=== PATIENT | female | born 1985 | race Caucasian/White ===

== ENCOUNTER 2017-09-29 16:21 | Emergency (ER) | payer SELFPAY ==
[2017-09-29] MEDS ORDERED: Sodium Chloride For Inhalation 0.9% 3 ML NEB ONE ×2 (17:06→18:16)
[2017-09-29] MEDS ORDERED: methylPREDNISolone Sod Succ/PF 125 MG/2 ML VIAL ONE (17:41)
[2017-09-29] MEDS ORDERED: Magnesium Sulfate 2 GM/NS 0.9% 50 ML BAG ONE (17:42)
[2017-09-29] MEDS ORDERED: Albuterol Sulfate 2.5 mg/0.5 ml Neb ONE ×3 (17:57→18:13)
[2017-09-29 17:59] LABS: Eosinophils 5 % (0-10); Hemoglobin 14.1 g/dL (12.0-16.0); Lymphocytes 22 % (21-51); MDiff Complete? YES; Mean Corpuscular HGB CONC 34.1 g/dL (32.0-36.0); Mean Corpuscular Hemoglobin 30.8 pg (27.0-31.0); Mean Corpuscular Volume 90.2 fl (81.0-99.0); Mean Platelet Volume 7.2 fL (7.4-10.4); Monocytes 13 % (0-10); Neutrophil 51 % (42-75); PLT Morphology Comment Appears Adequate; Platelet Count 362 thou/uL (130-400); RBC Distribution Width 12.3 % (11.5-14.5); Reactive Lymphocytes 9 % (0-10); Red Blood Cell (RBC) Count 4.58 mill/uL (4.20-5.40); White Blood Cell (WBC) Count 12.9 thou/uL (4.8-10.8)
[2017-09-29 18:02] LABS: Anion Gap 17 mmol/L (10-20); BUN (Urea Nitrogen) 10 mg/dL (7.0-18.7); Calc. Creatinine Clearance 0 mL/min (70-130); Calcium 9.6 mg/dL (7.8-10.44); Carbon Dioxide 21 mmol/L (22-29); Chloride 105 mmol/L (98-107); Estimated GFR-MDRD 90; Glucose 84 mg/dL (70-105); Potassium 4.7 mmol/L (3.5-5.1); Sodium 138 mmol/L (136-145)
--- NOTE | 2017-09-29 18:35 | RAD ---
CHEST ONE VIEW: History: Dyspnea. Comparison: 10-15-16 FINDINGS: The lungs are clear. No pneumothorax or effusion. Cardiac silhouette and mediastinal contours are wit hin normal limits. IMPRESSION: No acute intrathoracic abnormality. POS: [facility]
== END 2017-09-29 19:09 | disposition home or self-care (01) ==
LOC: SCSER 16:21
DX: J98.01 Acute bronchospasm (principal); M06.9 Rheumatoid arthritis, unspecified; G43.909 Migraine, unspecified, not intractable, without status migrainosus; F17.210 Nicotine dependence, cigarettes, uncomplicated; Z79.899 Other long term (current) drug therapy
CPT/HCPCS: 71045; 80048; 85025; 94640; 96365; 96375; J2930; J3475; J7611; J7620

== ENCOUNTER 2018-03-04 19:51 | Emergency (ER) | payer SELFPAY ==
[2018-03-04] MEDS ORDERED: Acetaminophen 500 MG TAB ONE (20:09)
[2018-03-04 20:33] LABS: #Eosinphils 0.5 thou/uL (0.0-0.7); #Lymphocytes 2.2 thou/uL (1.20-3.40); #Monocytes 1.3 thou/uL (0.11-0.59); #Neutrophils 9.8 thou/uL (1.40-6.50); %Basophils 0.3 % (0.0-1.0); %Eosinophils 3.7 % (0.0-10.0); %Lymphocytes 15.7 % (21.0-51.0); %Monocytes 9.5 % (0.0-10.0); %Neutrophils 70.7 % (42.0-75.0); BHCG - Serum Negative (NEGATIVE); Hemoglobin 14.2 g/dL (12.0-16.0); Mean Corpuscular HGB CONC 31.7 g/dL (32.0-36.0); Mean Corpuscular Hemoglobin 28.9 pg (27.0-31.0); Mean Corpuscular Volume 91.1 fL (78.0-98.0); Mean Platelet Volume 7.1 fL (7.4-10.4); Platelet Count 394 thou/uL (130-400); Pregs Control Background? CLEAR/WHITE (CLR/WHITE); Pregs Control Bar Appear? YES (CONTROL BAR); RBC Distribution Width 13.2 % (11.5-14.5); Red Blood Cell (RBC) Count 4.93 mill/uL (4.20-5.40); White Blood Cell (WBC) Count 13.8 thou/uL (4.8-10.8)
[2018-03-04 20:41] LABS: Bilirubin Negative (Negative); Blood, Urine Small (Negative); Clarity CLEAR (Clear); Glucose, Urine (Dipstick) Negative (Negative); Leukocyte Negative (Negative); Nitrite Negative (Negative); Protein, Urine (Dipstick) Negative (Neg-Trace); Specific Gravity, Urine 1.024 (1.002-1.036); Urobilinogen 0.2 mg/dL (0.2-1.0)
[2018-03-04 20:44] LABS: Bacteria/HPF 1+ HPF (None Seen); Hyaline Casts/LPF 0-3 HYALINE CAST LPF (0-3 Hyaline); Pathc Cast-AUWi Flag 1.01 (0-2.49)
[2018-03-04 20:48] LABS: ALT (SGPT) 39 U/L (8-55); AST (SGOT) 44 U/L (5-34); Alkaline Phosphatase 104 U/L (40-150); Anion Gap 14 mmol/L (10-20); BUN (Urea Nitrogen) 10 mg/dL (7.0-18.7); Bilirubin, Total 0.5 mg/dL (0.2-1.2); Calc. Creatinine Clearance 0 mL/min (70-130); Carbon Dioxide 22 mmol/L (22-29); Chloride 101 mmol/L (98-107); Estimated GFR-MDRD 88; Globulin 4.1 g/dL (2.4-3.5); Glucose 99 mg/dL (70-105); Potassium 3.9 mmol/L (3.5-5.1); Protein, Total 8.1 g/dL (6.0-8.3); Sodium 133 mmol/L (136-145)
--- NOTE | 2018-03-04 21:40 | RAD ---
AP VIEW CHEST: 03/04/18 HISTORY: Cough. AP view chest demonstrates no evidence of acute intrathoracic abnormality seen. No evidence of effusi ons, pneumonia or pneumothorax seen. Mild pulmonary vascular congestion seen. IMPRESSION: Mild pulmonary vascular congestion. Otherwise unremarkable AP view chest. POS: [facility]
== END 2018-03-04 23:18 | disposition home or self-care (01) ==
LOC: ERS 19:51
DX: L03.311 Cellulitis of abdominal wall (principal); J45.909 Unspecified asthma, uncomplicated; F17.290 Nicotine dependence, other tobacco product, uncomplicated
CPT/HCPCS: 36415; 71045; 80053; 81003; 81015; 83605; 84703; 85025; 87040; 96361; 96365; 96366; 96368; J1956; J3370

== ENCOUNTER 2020-03-18 14:21 | Emergency (ER) | payer OTHER, SELFPAY ==
[~2020-03-18 14:21] MED LIST: Iopamidol 370 76% 100 ML VIAL ONE
[2020-03-18] MEDS ORDERED: Clindamycin/D5W 900 mg/50 ml Premix Bag ONE (15:20)
[2020-03-18 16:12] LABS: ALT (SGPT) 10 U/L (8-55); AST (SGOT) 18 U/L (5-34); Albumin 3.6 g/dL (3.5-5.0); Alkaline Phosphatase 88 U/L (40-110); Anion Gap 13 mmol/L (10-20); BUN (Urea Nitrogen) 12 mg/dL (7.0-18.7); Bilirubin, Total 0.2 mg/dL (0.2-1.2); Calc. Creatinine Clearance 0 mL/min (70-130); Carbon Dioxide 23 mmol/L (22-29); Chloride 107 mmol/L (98-107); Estimated GFR-MDRD Greater than 90; Globulin 3.8 g/dL (2.4-3.5); Glucose 87 mg/dL (70-105); Potassium 5.2 mmol/L (3.5-5.1); Protein, Total 7.4 g/dL (6.0-8.3); Sodium 138 mmol/L (136-145)
[2020-03-18 16:18] LABS: #Basophils 0.1 thou/uL (0.0-0.2); #Eosinphils 0.2 thou/uL (0.0-0.7); #Monocytes 1.5 thou/uL (0.11-0.59); #Neutrophils 8.2 thou/uL (1.40-6.50); %Basophils 0.6 % (0.0-1.0); %Eosinophils 1.2 % (0.0-10.0); %Lymphocytes 23.1 % (21.0-51.0); %Monocytes 11.9 % (0.0-10.0); %Neutrophils 63.3 % (42.0-75.0); Hemoglobin 11.3 g/dL (12.0-16.0); Mean Corpuscular Hemoglobin 26.9 pg (27.0-31.0); Mean Corpuscular Volume 84.3 fL (78.0-98.0); Platelet Count 398 thou/uL (130-400); RBC Distribution Width 13.6 % (11.5-14.5); Red Blood Cell (RBC) Count 4.21 mill/uL (4.20-5.40); White Blood Cell (WBC) Count 12.9 thou/uL (4.8-10.8)
[2020-03-18 16:52] LABS: Pregnancy Test - Urine (BHCG) Negative (Negative); Pregu Control Background? CLEAR/WHITE (CLR/WHITE); Pregu Control Bar Appear? YES (CONTROL BAR); Specific Gravity 1.018 (1.002-1.036)
--- NOTE | 2020-03-18 17:21 | CT ---
CT FACIAL BONES WITH IV CONTRAST: 03/18/20 PROVIDED CLINICAL HISTORY: Right eye swelling. FINDINGS: There is reticulation of the subcutaneous adipose layer and noncircumscribed fluid density seen withi n the preseptal soft tissues on the right. The globe and other orbital contents appear normal on the right. There is no evidence for rim enhancing fluid collections to suggest cutaneous abscess. The par anasal sinuses are free of significant opacity. Dental caries and periodontal disease are demonstrate d without surrounding inflammatory fat stranding in these regions. The mastoid air cells are normally aerated. There is no regional lymphadenopathy. The regional major vascular structures appear unremar kable. The parotid and submandibular glands appear normal. The visualized intracranial contents appea r unremarkable. IMPRESSION: Preseptal cellulitis on the right without evidence for cutaneous abscess or postseptal involvement. POS: [facility]
== END 2020-03-18 18:55 | disposition home or self-care (01) ==
LOC: ERS 14:21
DX: L03.211 Cellulitis of face (principal); M06.9 Rheumatoid arthritis, unspecified; G43.909 Migraine, unspecified, not intractable, without status migrainosus; J45.909 Unspecified asthma, uncomplicated; F17.290 Nicotine dependence, other tobacco product, uncomplicated
CPT/HCPCS: 36415; 70487; 80053; 81025; 85025; 96365; J3490; Q9967